=== PATIENT | female | born 1995 | race Caucasian/White ===

== ENCOUNTER → 2018-10-09 | Outpatient (CLI) | payer BC ==
--- NOTE | 2018-10-09 17:52 | Diagnostic Imaging Report ---
INDICATION: Low back pain. Lumbar spine. FINDINGS: AP and lateral views of the lumbar spine show normal vertebral body height and alignment. Disc spaces are normal. There are no fractures. IMPRESSION: Negative lumbar spine. Dictated by: Dictated on workstation # [id number]
== END ==
LOC: RAD 15:45
PROVIDERS: ATTEND Family Medicine
DX: M54.5 Low back pain (principal)
CPT/HCPCS: 72100

== ENCOUNTER → 2020-09-10 | Outpatient (CLI) | payer BC ==
--- NOTE | 2020-09-10 17:30 | Diagnostic Imaging Report ---
INDICATION: survey, patient. TECHNIQUE: Multiple real-time grayscale images were obtained over the gravid uterus. COMPARISON: None FINDINGS: A single live intrauterine fetus is seen measuring 18 weeks 4 days in size with sonographic EDC of 02/07/2021. Fetus is in variable presentation. Placenta is posterior and low lying. Amniotic fluid was normal qualitatively. The heart rate was 143 bpm. Cervical length is 5.9 cm. survey showed normal-appearing kidneys and bladder and stomach. Normal-appearing intracranial ventricles are seen. Normal-appearing cord and cord insertion were seen. spine appeared unremarkable. We could not obtain a good four-chamber heart view due to motion. Maternal adnexa showed no free fluid. Biometrical measurements are as follows: Biparietal 4.14 cm, age 18 weeks 4 days. Head circumference 15.03 cm, age 18 weeks 1 days. Abdominal circumference 13.79 cm, age 19 weeks 2 days. Femur length 2.67 cm, age 18 weeks 1 days. Sonographic estimate age: 18 weeks 4 days. Sonographic estimated date of delivery: 02/07/2021. Estimated Weight: 250 gm (+/- 37 gm). LMP percentile: 59%. heart rate: 143 beats per minute. number: 1 of 1. IMPRESSION: Single live intrauterine fetus measuring 18 weeks 4 days in size as described above. survey showed no detectable abnormalities although four-chamber heart view was not obtained. Placenta is posterior and low lying, suggest follow-up to ensure this resolves. Dictated by: Dictated on workstation # [id number]
== END ==
LOC: RAD 12:00
PROVIDERS: ATTEND Family Medicine
DX: Z34.92 Encounter for supervision of normal pregnancy, unspecified, second trimester (principal); Z3A.18 18 weeks gestation of pregnancy
CPT/HCPCS: 76805